=== PATIENT | female | born 1940 | race Caucasian/White ===

== ENCOUNTER 2024-12-31 12:52 | Outpatient (CLI) | payer MEDICARE, OTHER | END 2024-12-31 12:53 | disposition home or self-care (01) | LOC: CT 12:52 | PROVIDERS: ATTEND Orthopaedic Surgery | DX: M17.11 Unilateral primary osteoarthritis, right knee (principal); K57.30 Diverticulosis of large intestine without perforation or abscess without bleeding; Z01.818 Encounter for other preprocedural examination | CPT/HCPCS: 71046; 80048; 81001; 85025; 85610; 87081; 93005; 93010 ==

== ENCOUNTER 2024-12-31 13:59 | Outpatient (CLI) | payer MEDICARE, OTHER ==
[2024-12-31 15:29] LABS: #Basophils Less than 0.03 10x3/uL (0.0-0.2); %Basophils 0.3 % (0.0-1.0); Hemoglobin 13.5 g/dL (12.0-16.0)
[2024-12-31 15:47] LABS: INR-International Normal Ratio 1.0; Prothrombin Time 13.2 sec (12.0-14.7)
[2024-12-31 16:02] LABS: Anion Gap 17 mmol/L (10-20); BUN (Urea Nitrogen) 14 mg/dL (9.8-20.1); Calc. Creatinine Clearance 0 mL/min (70-130); Calcium 9.8 mg/dL (7.8-10.44); Carbon Dioxide 28 mmol/L (23-31); Chloride 99 mmol/L (98-107); Glucose 101 mg/dL (83-110); Potassium 3.2 mmol/L (3.5-5.1); Sodium 141 mmol/L (136-145)
[2024-12-31 16:22] LABS: #Eosinophils 0.18 10x3/uL (0.0-0.7); #Monocytes 0.74 10x3/uL (0.11-0.59); #Neutrophils 3.61 10x3/uL (1.40-6.50); %Eosinophils 2.5 % (0.0-10.0); %Lymphocytes 37.1 % (21.0-51.0); %Monocytes 10.2 % (0.0-10.0); %Neutrophils 49.6 % (42.0-75.0); Hematocrit 43.2 % (36.0-47.0); Mean Corpuscular Hemoglobin 30.2 pg (27.0-31.0); Mean Corpuscular Volume 96.6 fL (78.0-98.0); Platelet Count 226 10x3/uL (130-400); Red Blood Cell (RBC) Count 4.47 mill/uL (4.20-5.40); White Blood Cell (WBC) Count 7.26 10x3/uL (4.8-10.8)
[2024-12-31 16:32] LABS: Bacteria/HPF None Seen HPF (None Seen); Glucose, Urine (Dipstick) Normal (Negative); Leukocyte 250 Leu/uL (Negative); Protein, Urine (Dipstick) Negative (Neg-Trace); RBC/HPF 0-3 HPF (0-3); Specific Gravity, Urine 1.019 (1.002-1.036); WBC/HPF 21-50 HPF (0-3)
== END 2024-12-31 14:00 | disposition home or self-care (01) ==
LOC: LABBT 13:59
PROVIDERS: ATTEND Orthopaedic Surgery
DX: Z01.818 Encounter for other preprocedural examination (principal); M17.0 Bilateral primary osteoarthritis of knee
CPT/HCPCS: 71046; 80048; 81001; 85025; 85610; 87081; 93005; 93010

== ENCOUNTER 2025-01-08 05:39 | Day surgery (SDC) | payer MEDICARE, OTHER ==
[2024-12-31 14:04] VITALS: BMI 29.8
[2025-01-08] MEDS ORDERED: Tranexamic Acid 1,000 MG/10 ML VIAL ONE ×2 (06:32→08:50)
[2025-01-08] MEDS ORDERED: Vancomycin HCl 1.5 GM VIAL ONE (06:33)
[2025-01-08] MEDS ORDERED: Ropivacaine 0.5% HCl/PF (150 MG/30 ML VIAL) ONE (06:41)
[2025-01-08] MEDS ORDERED: Lidocaine 1% PF 5 ML VIAL ONE (07:20)
[2025-01-08] MEDS ORDERED: fentaNYL PF 100 MCG/2 ML SYRINGE ONE (07:20)
[2025-01-08] MEDS ORDERED: Ondansetron PF 4 MG/2 ML Vial ONE (07:20)
[2025-01-08] MEDS ORDERED: PROPOFOL 20 ML ONE (07:20)
[2025-01-08] MEDS ORDERED: Ondansetron PF 4 MG/2 ML Vial IVP PRN ×2 (07:30→08:45)
[2025-01-08] MEDS ORDERED: Ropivacaine 0.2% 550 ML 550 ML NERVE BLCK SCH (07:30)
[2025-01-08] MEDS ORDERED: HYDROcodone/Acetaminophen 10/325 mg Tablet PO PRN (07:30)
[2025-01-08] MEDS ORDERED: diphenhydrAMINE 25 MG CAP PO PRN (08:45)
[2025-01-08] MEDS ORDERED: Acetaminophen 325 MG TAB PO PRN (08:45)
[2025-01-08] MEDS ORDERED: HYDROmorphone 0.5 MG/0.5 ML SYR SLOW IVP PRN (09:30)
[2025-01-08] MEDS: Aspirin 81 mg Enteric Coated Tablet PO SCH (10:59)
[2025-01-08] MEDS: Metoprolol Succinate XL 50 MG ER.TAB PO SCH (10:59)
[2025-01-08] MEDS: Ketorolac Tromethamine 30 MG (1 mL) VIAL IVP SCH ×2 (14:12→14:22)
[2025-01-08] MEDS: HYDROcodone/Acetaminophen 10/325 mg Tablet PO PRN (14:23)
[2025-01-08] MEDS: Vancomycin 1 GM in Sodium Chloride 0.9% 250 ML 250 ML IVPB SCH (18:57)
[2025-01-09 05:59] LABS: Hematocrit 35.0 % (36.0-47.0); Hemoglobin 11.0 g/dL (12.0-16.0); Mean Corpuscular Hemoglobin 30.3 pg (27.0-31.0); Mean Corpuscular Volume 96.4 fL (78.0-98.0); Platelet Count 189 10x3/uL (130-400); Red Blood Cell (RBC) Count 3.63 mill/uL (4.20-5.40); White Blood Cell (WBC) Count 12.41 10x3/uL (4.8-10.8)
[2025-01-09] MEDS: Ferrous Gluconate 324 MG TAB PO SCH (08:36)
[2025-01-09] MEDS: Multivitamin W/ Minerals 1 TAB PO SCH (08:36)
[2025-01-09] MEDS: Senokot S 8.6-50 MG TAB PO SCH (08:37)
[2025-01-09 20:00] VITALS: BP 118/69; TEMP 98.3
[2025-01-11] MEDS ORDERED: Meloxicam 15 MG TAB PO SCH (09:00)
== END 2025-01-09 20:00 ==
LOC: SDC 05:39 → SURG A 10:16 → SDC 01-09 20:00
PROVIDERS: ATTEND Orthopaedic Surgery
PROC: 0SRC0JZ Replacement of Right Knee Joint with Synthetic Substitute, Open Approach (ICD-10-PCS; principal; 2025-01-08)
PROC: 0S9D3ZZ Drainage of Left Knee Joint, Percutaneous Approach (ICD-10-PCS; 2025-01-08)
PROC: 3E0T3BZ Introduction of Anesthetic Agent into Peripheral Nerves and Plexi, Percutaneous Approach (ICD-10-PCS; 2025-01-08)
DX: M17.0 Bilateral primary osteoarthritis of knee (principal); D62 Acute posthemorrhagic anemia; I10 Essential (primary) hypertension; E78.5 Hyperlipidemia, unspecified; Z98.41 Cataract extraction status, right eye; Z98.42 Cataract extraction status, left eye; Z90.710 Acquired absence of both cervix and uterus; Z90.49 Acquired absence of other specified parts of digestive tract; Z79.899 Other long term (current) drug therapy
CPT/HCPCS: 0055T; 20610; 27447; 64448; 36415; 85027; A4306; C1713; C1776; C1889; J1100; J1885; J2250; J2405; J2704; J2795; J3010; J3373; J7050